=== PATIENT | male | born 1935 | race Caucasian/White ===

== ENCOUNTER 2017-08-31 11:36 | Day surgery (SDC) | payer MEDICARE, OTHER ==
[~2017-08-31] VITALS: Ht 182.9 cm; Wt 86.4 kg
--- NOTE | ~2017-08-31 | OP ---
PATIENT NAME: BERTHA LUCERO MEDICAL RECORD: [id number] :35 LOCATION:D[facility] ADMISSION DATE: SURGEON: SRINIVAS KIRBY MD DATE OF OPERATION: 08/31/2017 PROCEDURE: Colonoscopy with tattoo injection, colonoscopy with snare polypectomy, colonoscopy with hot biopsy, biopsy of polyps. SCOPE: [employer] video colonoscope. MEDICATIONS PROVIDED: Propofol 180 mg IV push, O2 of 4 liters. INDICATION FOR THE PROCEDURE: 1. Left lower quadrant abdominal pain. 2. Diverticulosis. 3. History of polyps. FINDINGS: Informed consent was given. The patient was made comfortable with the above medications. After reaching an adequate level of sedation by slow IV push, the patient was placed on his left side. The rectal exam revealed good sphincter tone, no fissures or fistulas were appreciated. The colonoscope was advanced to the cecum where the ileocecal valve and appendiceal orifice were identified. On withdrawal of the scope, mucosa was carefully inspected. The patient had 2 very small polyps in the ascending colon. Photodocumentation was obtained and these were removed with hot biopsy forceps technique. We then began to withdraw the scope and in the transverse colon at 70 cm, another 1-cm polyp was seen and removed with hot biopsy forceps technique. Upon further withdrawal of the scope, at 35 cm in the proximal sigmoid colon, a 3 cm polyp was removed with a snare. We then injected this with Allyson ink to benita the area for future identification. On further withdrawal, the patient had 2 small polyps in the distal sigmoid colon, these were both 0.5 cm in size and were removed with hot biopsy forceps technique. Of note, the patient has fairly severe pandiverticulosis without the presence of diverticulitis. On the left side of the colon, he had significant spasm consistent with irritable bowel syndrome. Within the rectal vault on retroflexion, very large internal hemorrhoids were noted and on final withdrawal of the scope, external hemorrhoids were also appreciated. The scope was then withdrawn. Note, the preparation was fair to poor. IMPRESSION: 1. The patient with pandiverticulosis without diverticulitis. 2. Spasm associated with irritable bowel syndrome most pronounced on the left side of the colon. 3. Zntocgoo-my-lnipux internal hemorrhoids. 4. Moderate external hemorrhoids. 5. Polyps as follows: 1. Two small ascending colon polyps less than 1 cm in size, both removed with hot biopsy forceps technique. 2. A 1 cm polyp at 70 cm within the transverse colon, removed with hot biopsy forceps technique. 3. A 3 cm polyp within the proximal sigmoid colon at 35 cm, removed with a snare, then tattooed for further identification. 4. Two 0.5 cm polyps in the distal sigmoid colon, removed with hot biopsy forceps technique. OPERATIVE REPORT [id number] BERTHA LUCERO PLAN: 1. No aspirin, no anti-inflammatory drugs for 14 days. 2. High fiber diet. 3. Return to clinic on a p.r.n. basis. TRANSINT:[id number] Voice Confirmation ID: [id number] DOCUMENT ID: [id number] SRINIVAS KIRBY MD CC: MAUREEN CHAUDHRY MD [id number] DICTATION DATE: 08/31/17 1440 INSURANCE DEFENSE ATTORNEY: 08/31/17 [address] [facility] 08/31/17 [facility] [address] [place] [address]
[~2017-08-31 11:36] MED LIST: KLONOPIN0.5 MG PO; MUCINEX600 MG PO; NIZORAL 2 % CRE15 GM; NORVASC5 MG PO; OCUVITE TABLET1 TA1 PO; SYMBICORT 80-10.2 GM INH; VENTOLIN HFA18 GM INH; VITAMIN B-1100 M1 PO; VITAMIN D31000 UNIT
[2017-08-31 12:48] LABS: BASOPHILS 0.6 % (0-2); EOSINOPHILS 3.6 % (0-7); HEMATOCRIT 47.6 % (42.0-54.0); HEMOGLOBIN 16.5 g/dL (13.5-17.5); IMMATURE GRANULOCYTES 0.5 % (0-5); LYMPHOCYTES 25.5 % (15-50); MCH 33.6 pg (26.0-34.0); MCHC 34.7 g/dL (31.0-37.0); MCV 96.9 fL (80.0-100.0); MEAN PLATELET VOLUME 10.1 fL (7.4-10.4); MONOCYTES 10.4 % (2-11); NEUTROPHILS 59.4 % (40-80); PLATELET COUNT 189 10x3/uL (130-400); RBC 4.91 10x6/uL (4.20-6.10); RDW 13.2 % (11.5-14.5); WBC 6.7 10x3/uL (4.8-10.8)
[2017-08-31 13:20] LABS: ANION GAP 9.9 mmol/L (8-16); CALCIUM 8.8 mg/dL (8.5-10.1); CARBON DIOXIDE 33.3 mmol/L (21.0-32.0); CREATININE - SERUM 1.1 mg/dL (0.6-1.3); POTASSIUM - SERUM 4.2 mmol/L (3.5-5.1)
[2017-08-31 13:37] VITALS: Ht 182.9 cm; Wt 86.4 kg
[2017-08-31] MEDS ORDERED: PROVENTIL/2.5 MG/3 M INH (13:51)
[2017-08-31] MEDS ORDERED: MUCOMYST 20200 MG/M2 INH (13:51)
== END 2017-08-31 15:30 | disposition home or self-care (01) ==
LOC: D.OPS 11:36
PROVIDERS: Anesthesiology
DX: K57.30 Diverticulosis of large intestine without perforation or abscess without bleeding (principal); K58.9 Irritable bowel syndrome, unspecified; K64.8 Other hemorrhoids; K64.4 Residual hemorrhoidal skin tags; K63.5 Polyp of colon; D12.5 Benign neoplasm of sigmoid colon; D12.3 Benign neoplasm of transverse colon; Z01.812 Encounter for preprocedural laboratory examination

== ENCOUNTER 2018-02-13 12:00 | Day surgery (SDC) | payer MEDICARE, OTHER ==
[~2018-02-13] VITALS: Ht 180.3 cm; Wt 85.0 kg
--- NOTE | ~2018-02-13 | OP ---
PATIENT NAME: BERTHA LUCERO MEDICAL RECORD: [id number] :35 LOCATION:D.[facility] ADMISSION DATE: SURGEON: SRINIVAS KIRBY MD DATE OF OPERATION: 02/13/2018 PROCEDURE: Colonoscopy with polypectomy. SCOPE: Olympus video colonoscope. MEDICATIONS: Per TIVA. The patient received 200 mg of propofol for this procedure, O2 at 4 liters. INDICATION FOR THE PROCEDURE: History of colon polyps and diverticular disease. The patient with tubular adenomatous polyp in the proximal sigmoid colon. FINDINGS: Informed consent was given. The patient was made comfortable with the above medications. After reaching an adequate level of sedation by slow IV push, the patient was placed on his left side. The rectal exam revealed good sphincter tone. No fissures or fistulas were appreciated. No external skin tags were seen. The colonoscope was advanced to the cecum, where ileocecal valve and appendiceal orifice were identified. The cecum had the presence of a 0.5-cm polyp, which was removed with hot biopsy forcep technique. We then intubated the small bowel, which was seen to be normal. On withdrawal of the scope, mucosa was carefully inspected. The patient had pandiverticulosis without diverticulitis. Within the rectal vault and on retroflexion, only internal hemorrhoids were seen. IMPRESSION: 1. Normal cecum. 2. Normal terminal ileum. 3. Polyp within the cecum, 0.5 cm in size, removed with hot biopsy forcep technique. 4. Pandiverticulosis without diverticulitis. 5. Internal hemorrhoids. PLAN: 1. No aspirin and no anti-inflammatory drugs if possible for 14 days. 2. High-fiber diet. 3. Probiotics. 4. Diverticular diet. 5. Return to clinic on a p.r.n. basis. TRANSINT:[id number] Voice Confirmation ID: [id number] DOCUMENT ID: [id number] SRINIVAS KIRBY MD CC: [id number] DICTATION DATE: 02/13/18 1435 PARAPLANNER: 02/13/18 [id number] [place] [id number]
[~2018-02-13 12:00] MED LIST changes: +MUCOMYST 20200 MG/M2 INH; +PROVENTIL/2.5 MG/3 M INH
[2018-02-13 12:32] LABS: BASOPHILS 0.5 % (0-2); HEMATOCRIT 48.9 % (42.0-54.0); HEMOGLOBIN 17.1 g/dL (13.5-17.5); IMMATURE GRANULOCYTES 0.5 % (0-5); MCH 33.3 pg (26.0-34.0); MCV 95.1 fL (80.0-100.0); MONOCYTES 9.4 % (2-11); NEUTROPHILS 49.6 % (40-80); PLATELET COUNT 220 10x3/uL (130-400); RBC 5.14 10x6/uL (4.20-6.10); WBC 9.6 10x3/uL (4.8-10.8)
[2018-02-13 12:40] LABS: ANION GAP 12.5 mmol/L (8-16); CALCIUM 8.9 mg/dL (8.5-10.1); CARBON DIOXIDE 31.5 mmol/L (21.0-32.0); CREATININE - SERUM 1.1 mg/dL (0.6-1.3)
[2018-02-13] MEDS ORDERED: PREDNISONE5 MG (13:14)
[2018-02-13] MEDS ORDERED: FLUTICASONE PRO16 GM NASAL (13:16)
[2018-02-13] MEDS ORDERED: MAGNESIUM PO (13:17)
[2018-02-13] MEDS ORDERED: SINGULAIR10 MG PO (13:18)
[2018-02-13] MEDS ORDERED: OMEPRAZOLE20 M1 (13:19)
[2018-02-13] MEDS ORDERED: FLOMAX0.4 MG PO (13:19)
[2018-02-13 13:32] VITALS: BP 142/86; Ht 180.3 cm; Wt 85.0 kg
== END 2018-02-13 15:45 | disposition home or self-care (01) ==
LOC: D.OPS 12:00
PROVIDERS: Anesthesiology
DX: K63.5 Polyp of colon (principal); K57.30 Diverticulosis of large intestine without perforation or abscess without bleeding; K64.8 Other hemorrhoids; Z01.812 Encounter for preprocedural laboratory examination; Z86.010 Personal history of colon polyps

== ENCOUNTER 2018-08-21 10:19 | Day surgery (SDC) | payer MEDICARE, OTHER ==
[~2018-08-21] VITALS: Ht 182.9 cm; Wt 86.4 kg
[~2018-08-21 10:19] MED LIST changes: +FLOMAX0.4 MG PO; +FLUTICASONE PRO16 GM NASAL; +MAGNESIUM PO; +OMEPRAZOLE20 M1; +PREDNISONE5 MG; +SINGULAIR10 MG PO
[2018-08-21 10:39] LABS: BASOPHILS 0 % (0-2); EOSINOPHILS 0 % (0-7); HEMOGLOBIN 17.1 g/dL (13.5-17.5); IMMATURE GRANULOCYTES 0.1 % (0-5); LYMPHOCYTES 22.8 % (15-50); MCH 32.8 pg (26.0-34.0); MCHC 34.9 g/dL (31.0-37.0); MCV 93.9 fL (80.0-100.0); MEAN PLATELET VOLUME 10.3 fL (7.4-10.4); MONOCYTES 10.1 % (2-11); PLATELET COUNT 177 10x3/uL (130-400); RBC 5.22 10x6/uL (4.20-6.10); RDW 13.7 % (11.5-14.5); WBC 7.5 10x3/uL (4.8-10.8)
[2018-08-21 10:45] LABS: CALCIUM 8.4 mg/dL (8.5-10.1); CARBON DIOXIDE 29.2 mmol/L (21.0-32.0); CREATININE - SERUM 1.3 mg/dL (0.6-1.3); POTASSIUM - SERUM 4.2 mmol/L (3.5-5.1)
[2018-08-21 11:49] VITALS: BP 126/82; Ht 182.9 cm; Wt 86.4 kg
--- NOTE | 2018-08-21 16:34 | NUR ---
DC INSTRUCTIONS GIVEN TO PT/FAMILY. STATE UNDERSTANDING. DC'D IV CATH FULLY INTACT.
--- NOTE | 2018-08-21 16:50 | NUR ---
PT LEFT UNIT VIA WC AT 1640
--- NOTE | 2018-08-22 18:45 | OP ---
PATIENT NAME: BERTHA LUCERO MEDICAL RECORD: [id number] :35 LOCATION:D.[facility] ADMISSION DATE: SURGEON: CHIDI GEORGE MD DATE OF OPERATION: 08/21/2018 PRINCIPAL DIAGNOSES: History of a cecal polyp, which was a tubular adenoma with focal low-grade atypia. 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 No regrowth of the cecal polyp. A new sessile polyp, which was a 5-mm x 6-mm polyp. Severe pandiverticulosis. Right mid body prostate nodule. PROCEDURES: 1. Total colonoscopy to cecum. 2. Hot biopsy forceps polypectomy times 1. SURGEON: Chidi George MD TAX ASSOCIATE ATTORNEY: None. BLOOD LOSS: Minimal. ANESTHESIA: IV sedation. COMPLICATIONS: None. The risks, possible complications, and alternatives to the procedure were explained to the patient. He elects to proceed. DESCRIPTION OF PROCEDURE: A digital rectal examination was performed. The prostate was enlarged. There was a right-sided mid body prostate nodule. A colonoscope was inserted through the anus. It was easily advanced to the cecum. The prep was adequate. I examined the cecum carefully. I saw a scarred area, likely from the patient's prior biopsy forceps polypectomy. I then slowly withdrew the endoscope. I irrigated and aspirated extensively. I dragged the folds. One sessile polyp was noted. It was removed utilizing the hot biopsy forceps polypectomy technique. A retroflexed view was obtained in the rectum. The pullback was greater than a 15-minute pullback. I then unretroflexed the scope and then removed it under direct vision. I will see the patient in my office in 2-3 weeks. He is going to need further followup of this prostate nodule. TRANSINT:[id number] Voice Confirmation ID: [id number] DOCUMENT ID: [id number] OPERATIVE REPORT [id number] BERTHA LUCERO ROBERT MD at 184 CC: MAUREEN CHAUDHRY MD and SRINIVAS KIRBY [id number] DICTATION DATE: 08/21/18 1552 [employer] ADVISOR: 08/21/18 1829 [facility] 08/21/18 [id number] [place] [id number]
--- NOTE | 2018-08-22 18:58 | HP ---
PATIENT: BERTHA LUCERO MEDICAL RECORD: [id number] ACCOUNT: [id number] [facility] ADMISSION DATE: 08/21/18 PCP: MAUREEN CHAUDHRY MD HISTORY AND PHYSICAL EXAMINATION PRINCIPAL DIAGNOSIS: History of cecal polyp. HISTORY OF PRESENT ILLNESS: The polyp is complex in that it is in the thinnest part of the colon and it also is tubular adenoma with focal low-grade atypia. I am going to plan for colonoscopy and polypectomy if any residual polyp is present. The patient does have a history of colon polyps in the past. PAST MEDICAL AND SURGICAL HISTORY: History of atrial fibrillation of recent onset, history of pacemaker, history of bradycardia, coronary artery disease, hypertension, congestive heart failure, history of coronary stents, gastroesophageal reflux, history of testicular repair, history of hernia repair, history of foot surgery. HOME MEDICATIONS: Please see the nursing list. ALLERGIES: No known drug allergies. PHYSICAL EXAMINATION: GENERAL: The patient does not appear acutely ill. He does not appear chronically ill. VITAL SIGNS: Reviewed. EARS: External ears appear normal. EYES: Extraocular movements are intact. NECK: Trachea is midline. CHEST: No intercostal retractions. PULMONARY: Nonlabored and no stridor. IMPRESSION: History of a cecal polyp with low-grade atypia. PLAN: Colonoscopy and polypectomy if there is any residual or recurrent polyp present. TRANSINT:[id number] Voice Confirmation ID: [id number] DOCUMENT ID: [id number] CHIDI GEORGE MD at 1858 CC: MAUREEN CHAUDHRY MD and SRINIVAS KIRBY [id number] DICTATION DATE: 08/21/18 1510 [employer]PERVISOR [employer] PA[employer] MIXING: 08/21/18 1533 [facility] 08/21/18 [facility] [address] [place] [address]
== END 2018-08-21 16:40 | disposition home or self-care (01) ==
LOC: D.OPS 10:19
PROVIDERS: Anesthesiology; ATTEND Surgery
DX: K63.5 Polyp of colon (principal); Z86.010 Personal history of colon polyps; K57.30 Diverticulosis of large intestine without perforation or abscess without bleeding; N40.2 Nodular prostate without lower urinary tract symptoms; I48.91 Unspecified atrial fibrillation; I11.0 Hypertensive heart disease with heart failure; I50.9 Heart failure, unspecified; I25.10 Atherosclerotic heart disease of native coronary artery without angina pectoris; Z95.5 Presence of coronary angioplasty implant and graft; K21.9 Gastro-esophageal reflux disease without esophagitis; Z95.0 Presence of cardiac pacemaker; Z01.812 Encounter for preprocedural laboratory examination